=== PATIENT | male | born 1970 | race Caucasian/White ===

== ENCOUNTER 2017-10-19 06:49 | Outpatient (CLI) | payer OTHER | END 2017-10-19 06:50 | disposition home or self-care (01) | LOC: BICMRI 06:49 | PROVIDERS: ATTEND Family Medicine | DX: M25.561 Pain in right knee (principal); S83.231A Complex tear of medial meniscus, current injury, right knee, initial encounter ==

== ENCOUNTER 2017-11-30 06:34 | Day surgery (SDC) | payer OTHER ==
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
[2017-11-29 10:33] VITALS: BMI 28.0
[2017-11-30] MEDS ORDERED: CEFAZOLIN/Water 2 GM/20 ML SYRINGE ONE (08:06)
[2017-11-30] MEDS ORDERED: Fentanyl 100 MCG/2 ML VIAL ONE (08:52)
[2017-11-30] MEDS ORDERED: Lidocaine 1% w/Epinephrine 1:200K 30 ML VIAL ONE (09:13)
[2017-11-30] MEDS ORDERED: Bupivacaine 0.5% 10 ML VIAL ONE (09:13)
--- NOTE | 2017-11-30 15:22 | OP ---
DATE OF PROCEDURE: 11/30/2017 SURGEON: Chapo Melgar M.D. ANESTHESIA: General. PREOPERATIVE DIAGNOSES: Medial meniscal tear, chronic ACL tear, and chondromalacia patella, right kn ee. POSTOPERATIVE DIAGNOSES: Medial meniscal tear, chronic ACL tear, and chondromalacia patella, right k nee. PROCEDURE: Arthroscopy right knee with partial medial meniscectomy. OPERATIVE FINDINGS: Examination under anesthesia revealed a 1+ Renea and 1+ positive pivot shift, it was not marked instability. No medial or lateral instability. There is full range of motion at a rthroscopy, there was moderate effusion. There was grade II and early grade III changes in the centr al portion of the patella. No areas of exposed bone. There was a chronic complex tear of the medial meniscus involving the mid and posterior horns. There were 2 large flaps anteriorly and posteriorly . This may have been an old bucket-handle tear that had . There was some grade II and cathy y grade III changes on the lateral medial femoral condyle, no areas of exposed bone. The ACL was aguila ewhat attenuated and appeared to be somewhat stretched, but there were some intact and it did _ ____ to anterior drawer testing and appeared to be somewhat functional. Lateral meniscus was intact. NARRATIVE REPORT: After satisfactory anesthesia was induced in supine position, the patient was plac ed in a leg balbuena and then prepped and draped in the routine manner. The right leg was elevated, ex sanguinated with an Esmarch bandage, and tourniquet inflated to 300 mmHg. [place] arthroscope was in troduced into the anterolateral portal, probe through an anteromedial portal, and inflow and outflow accomplished through the scope using the Raman arthroscopy pump. All findings were documented with the video printer and hard copies were made. The medial meniscus was debrided with the use of baske t forceps and motorized shaver and the remaining rim contoured and probed and found to be stable. Th ere was still intact rim of 2-3 mm. There was some horizontal cleavage tearing in the remaining rim, but this was stable and I elected to leave this as is. Despite the MRI findings, I could not find t he posteromedial loose body. The knee was then scoped through the anteromedial portal and no additio nal pathology found. The scope was placed back into the anterior lateral portal, the chondromalacia of patella was debrided with the use of motorized shaver, removing all of loose articular surf joey. The knee was then copiously irrigated through the scope and all instruments were then withdrawn . A mixture of 10 mL of 0.5% Marcaine and 30 mL of 1% lidocaine with epinephrine was made and 30 mL of this was instilled into the knee joint and an additional 10 mL injected about the portal sites. T he portal sites were closed with 3-0 nylon and sterile bulky compressive dressing was applied and the tourniquet deflated after 23 minutes. The foot promptly pinked up. The patient was awakened and ta diana to recovery room in stable condition. There were no apparent intraoperative complications. The estimated blood loss was negligible. The patient will be discharged home in satisfactory condition. He was instructed in ice, elevation, use of crutches, and home exercise program by the Physical Therapy Department. He was given written wound care instructions and a prescription for [place] 7.5 for pain, 40 tablets. He will be rechecked in my office in 10-14 days or sooner if there are any problems prior to that time.
[2017-11-30] MEDS ORDERED: Ondansetron HCl/PF 4 MG/2 ML Vial ONE (15:58)
[2017-11-30] MEDS ORDERED: Lidocaine 1% PF 5 ML VIAL ONE (15:58)
[2017-11-30] MEDS ORDERED: Propofol 200 MG/20 ML VIAL ONE (15:58)
[2017-11-30] MEDS ORDERED: Ketorolac Tromethamine 30 MG/ML VIAL ONE (15:58)
== END 2017-11-30 10:50 | disposition home or self-care (01) ==
LOC: SDC 06:34
PROVIDERS: ATTEND Orthopaedic Surgery
PROC: 0SBD4ZZ Excision of Left Knee Joint, Percutaneous Endoscopic Approach (ICD-10-PCS; principal; 2017-11-30)
DX: S83.231A Complex tear of medial meniscus, current injury, right knee, initial encounter (principal); S83.511A Sprain of anterior cruciate ligament of right knee, initial encounter
CPT/HCPCS: G8978-GP-CI; G8979-GP-CI; G8980-GP-CI; J1885; J2001; J2405; J2704; J3010; J3490

== ENCOUNTER 2018-07-17 10:23 | Outpatient (CLI) | payer OTHER ==
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
== END 2018-07-17 10:24 | disposition home or self-care (01) ==
LOC: BICMRI 10:23
PROVIDERS: ATTEND Family Medicine
DX: G43.009 Migraine without aura, not intractable, without status migrainosus (principal); J32.9 Chronic sinusitis, unspecified; Z87.820 Personal history of traumatic brain injury
CPT/HCPCS: 70551

== ENCOUNTER 2018-08-29 09:45 | Outpatient (CLI) | payer OTHER | END 2018-08-29 09:46 | disposition home or self-care (01) | LOC: CTENTCT 09:45 | PROVIDERS: ATTEND Otolaryngology Plastic Surgery within the Head & Neck | DX: J32.9 Chronic sinusitis, unspecified (principal) | CPT/HCPCS: 70486 ==

== ENCOUNTER 2019-07-02 08:17 | Outpatient (CLI) | payer OTHER ==
--- NOTE | 2019-07-02 11:25 | MRI ---
MRI LEFT KNEE WITHOUT CONTRAST: HISTORY: M23.92, internal derangement of the left knee. COMPARISON: None. FINDINGS: MEDIAL MENISCUS: There is moderate intrameniscal degeneration of body and posterior horn of medial meniscus with a con cealed tear within the red zone without articular surface extension at the root attachment. LATERAL MENISCUS: Intact. The PCL is intact. High-grade degeneration, likely an old tear anterior fibers anterior cruciate lig ament with an adjacent anterior ganglion pseudocyst formation measuring up to 7 mm. Medial collateral ligaments and lateral collateral ligaments are intact. EXTENSOR MECHANISM: Quadriceps tendon, patella, and patellar tendon are intact. CARTILAGE: Patellofemoral Compartment: Low-grade chondral fraying. No full-thickness defect. Medial Compartment: Intact. Lateral Compartment: Intact. The lateral posterior flexion zone is intact, although there are a few high-grade cartilage fissures posteromedial flexion zone with some cartilage delamination as well s some coracoreactive de generative changes. MUSCLES: Muscle signal and bulk is normal. SOFT TISSUES: No significant joint effusion. No free bodies. IMPRESSION: 1. Moderate degenerative signal in the posterior horn medial meniscus with a horizontal tear extendi ng from the body to the exiting peripheral fibers without articular surface extension, a concealed-ty pe tear with some adjacent posterior root attachment edema. No significant loss of hoop stress. 2. Fibrosis and scar bridging the anterior fibers anterior cruciate ligament to the tibial insertion site with anterior ganglion pseudocyst formation measuring up to 7 mm. This appears to be a healed old tear. 3. A few full-thickness cartilage fissures and delamination posterior flexion zone medial femoral co ndyle with subcortical reactive marrow change. POS: [facility]
== END 2019-07-02 08:18 | disposition home or self-care (01) ==
LOC: BICMRI 08:17
PROVIDERS: ATTEND Orthopaedic Surgery
DX: M23.92 Unspecified internal derangement of left knee (principal); R93.7 Abnormal findings on diagnostic imaging of other parts of musculoskeletal system; M67.462 Ganglion, left knee; S83.242A Other tear of medial meniscus, current injury, left knee, initial encounter; L90.5 Scar conditions and fibrosis of skin